=== PATIENT | male | born 1975 ===

== ENCOUNTER 2017-08-06 17:27 | Emergency (ER) | payer BC ==
[2017-08-06 17:35] VITALS: BP 111/73; PULSE 94; RESP 18; TEMP 97.5; O2SAT 100
[2017-08-06] MEDS ORDERED: Lidocaine 2% Inj (20ml) INFIL ONE (18:06)
--- NOTE | 2017-08-06 18:32 | C.PDOC ---
History Of Present Illness 42 yr old male presents to the ER s/p sustaining a laceration to the right eyebrow while playing basketball [employer]SIDE [employer]ACH[employer]PER[employer]. Patient states the ball was kicked in his face. Patient denies LOC, syncope, vision changes, dizziness, headache, vertigo , nausea, vomiting, neck pain, denies focal deficits. Ambulate to Ed for evaluation, not in nay apparent distress. Time Seen by Provider: 08/06/17 18:02 Chief Complaint (Nursing): Abnormal Skin Integrity History Per: Patient History/Exam Limitations: no limitations Onset/Duration Of Symptoms: Sudden Onset Current Symptoms Are (Timing): Still Present Past Medical History Reviewed: Historical Data, Nursing Documentation, Vital Signs Vital Signs: Last Vital Signs Temp 97.5 F L 08/06/17 17:32 Pulse 94 H 08/06/17 17:32 Resp 18 08/06/17 17:32 BP 111/73 08/06/17 17:32 Pulse Ox 100 08/06/17 19:00 Family History: States: No Known Family Hx - Social History Hx Alcohol Use: No Hx Substance Use: No - Immunization History Hx Tetanus Toxoid Vaccination: No Hx Influenza Vaccination: No Hx Pneumococcal Vaccination: No Review Of Systems Except As Marked, All Systems Reviewed And Found Negative. Eyes: Negative for: Vision Change Gastrointestinal: Negative for: Nausea, Vomiting Musculoskeletal: Negative for: Neck Pain Skin: Positive for: Other ((+) Laceration to the right eyebrow) Neurological: Negative for: Weakness, Numbness, Headache Physical Exam - Physical Exam Appears: Non-toxic, No Acute Distress Skin: Warm, Dry, No Rash, Other ((+) 2cm linear cutaneous laceration to the right eyebrow, lateral aspect. Mild bloody oozing from wound, no palpable deformity, no wound FB.) Head: Atraumatic, Normacephalic Eye(s): bilateral: PERRL, EOMI (no pain or limitation on extraocular movement) Ear(s): Bilateral: Normal Nose: No Flaring, No Discharge Oral Mucosa: Moist, No Drooling Tongue: Normal Appearing Lips: Normal Appearing Throat: No Erythema, No Exudate, No Drooling Neck: Normal ROM, Trachea Midline, No Midline Cervical Tenderness, No Paracervical Tenderness, No Step Off Deformity, Supple Chest: Symmetrical, No Tenderness Extremity: Normal ROM, No Tenderness, No Pedal Edema, No Swelling Extremity: Bilateral: Atraumatic Neurological/Psych: Oriented x3, Normal Speech, Normal Motor, Normal Sensation, Normal Reflexes ED Course And Treatment O2 Sat by Pulse Oximetry: 100 (RA) Pulse Ox Interpretation: Normal Progress Note: On re-evaluation, pt is afebrile, hemodynamicaly stable. Non- toxic. Ambulatory rin ED with stable gait. Head: AT/NC. Right eye: laceration ovr eyebrow repaired w/o significant. NO pain or limitation on extraocular movemnet. no eye discharges , no periorbital edema or erythema no palpable deformity. neck: Supple, (-) midline tenderness. Neuorlogicaly intact. Pt advised OBS 48 hrs for any sign of hea dinjury-return if any worsening or new changes. Advised on wound care. pt is stable for discharge now. Laceration - Laceration Repair Right Eyebrow Wound Length (In cm): 2 Description Of Wound: Linear Wound Cleansed With: Sterile Saline Anesthesia: Lidocaine 2% Wound Examination: Irrigated With Saline, No FB With Wound Exploration, No Tendon Injury With Wound Exploration Wound Closure: Suture (4) Suture Technique And Material Used: Interrupted, Nylon (5-0) Wound Complexity: Simple Medical Decision Making Medical Decision Making: PLAN: * Tetanus IM Disposition Counseled Patient/Family Regarding: Diagnosis, Need For Followup - Disposition Referrals: [facility] [Outside] Disposition: HOME/ ROUTINE Disposition Time: 19:03 Condition: STABLE Additional Instructions: OBSERVE 48 HOURS FOR ANY SIGN OF HEAD INJURY- HEADACHE, VOMITING, LETHARGY, VISUAL CHANGES OR ANY OTHER NEW CHANGES-RETURN TO ED FOR RE-EVALUATION. KEEP WOUND CLEAN, DRY APPLY ICE TO WOUND TODAY. SUTURE REMOVAL IN 5-7 DAYS RETURN TO ED IF ANY SIGN OF INFECTION. 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 - Scribe Statement The provider has reviewed the documentation as recorded by the Scribe Martina Gilman All medical record entries made by the Scribe were at my direction and personally dictated by me. I have reviewed the chart and agree that the record accurately reflects my personal performance of the history, physical exam, medical decision making, and the department course for this patient. I have also personally directed, reviewed, and agree with the discharge instructions and disposition.
== END 2017-08-06 19:13 | disposition home or self-care (01) ==
LOC: C.ER 17:27
DX: S01.111A Laceration without foreign body of right eyelid and periocular area, initial encounter (principal); W21.05XA Struck by basketball, initial encounter; Y93.67 Activity, basketball; Z23 Encounter for immunization